=== PATIENT | male | born 1980 | race African-American/Black ===

== ENCOUNTER 2019-08-03 22:54 | Emergency (ER) | payer SELFPAY ==
[~2019-08-03] VITALS: Ht 180.3 cm; Wt 74.8 kg
--- NOTE | 2019-08-03 23:04 | NUR ---
KAYLEN FROM HOME TO ER BED 9. INTOXICATED, SMELLS OF ALCOHOL. BROUGHT IN ON GURNEY. BROUGHT IN FOR HEMATESIS. PT REPORTS THAT HE HAS BEEN DRINKING AND HAD TOO MUCH, REPORT 1.5 BOTTLE OF WHISKEY. PT HAD X3 EPISODE OF VOMMITING AND ON THE 3RD VOMMITING HE NOTED DARK RED BLOOD. PA IS AT BEDSIDE FOR EVAL.
[2019-08-03] MEDS ORDERED: ONDANSETRON HCL/PF 4 MG/2 ML VIAL ONE (23:12)
[2019-08-03] MEDS ORDERED: PANTOPRAZOLE 40 MG VIAL ONE (23:12)
[2019-08-03] MEDS ORDERED: ONDANSETRON HCL/PF 4 MG/2 ML VIAL IVP ONE (23:30)
[2019-08-03] MEDS ORDERED: IV NS 0.9% 1,000 ML BAG IV ONE (23:30)
[2019-08-03] MEDS ORDERED: PANTOPRAZOLE 40 MG VIAL IV ONE (23:30)
[2019-08-03 23:43] LABS: BASOPHILS # (AUTO) 0.1 /CMM (0.0-0.2); BASOPHILS % (AUTO) 0.7 % (0.0-2.0); EOSINOPHILS % (AUTO) 0.4 % (0.0-6.0); HEMATOCRIT 44 % (39-51); HEMOGLOBIN 14.4 g/dL (13.5-17.5); LYMPHOCYTES # (AUTO) 1.2 /CMM (0.8-4.8); LYMPHOCYTES % (AUTO) 5.8 % (20.0-44.0); MEAN CORPUSCULAR HGB CONC 33 g/dl (31.0-36.0); MEAN CORPUSCULAR VOLUME 88 fL (80-96); MONOCYTES # (AUTO) 0.8 /CMM (0.1-1.30); MONOCYTES % (AUTO) 3.6 % (2.0-12.0); NEUTROPHILS % (AUTO) 89.5 % (43.0-81.0); PLATELET COUNT (AUTO) 159 /CMM (150-450); RED BLOOD CELL COUNT(AUTO) 4.98 MIL/uL (4.5-6.0); WHITE BLOOD COUNT (AUTO) 21.2 K/uL (4.3-11.0)
[2019-08-03 23:56] LABS: ALBUMIN 4.5 g/dL (3.4-5.0); BILIRUBIN,TOTAL 0.3 mg/dL (0.2-1.0); CALCIUM, SERUM 8.9 mg/dL (8.5-10.1); CREATININE 1.4 mg/dL (0.6-1.3); POTASSIUM 4.2 mmol/L (3.5-5.1); TOTAL PROTEIN, SERUM 8.3 g/dL (6.4-8.2)
[2019-08-04 01:05] VITALS: BP 122/67
--- NOTE | 2019-08-04 01:05 | NUR ---
Patient discharged to home in stable condition. Written and verbal after care instructions given. Patient verbalizes understanding of instruction.IV removed. Catheter intact and site benign. Pressure and 4x4 applied to site. No bleeding noted. Pt ambulatory with a steady gait
== END 2019-08-04 01:05 | disposition home or self-care (01) ==
LOC: ER 22:55
DX: K29.20 Alcoholic gastritis without bleeding (principal); F10.10 Alcohol abuse, uncomplicated; K92.0 Hematemesis; K21.9 Gastro-esophageal reflux disease without esophagitis; Y90.6 Blood alcohol level of 120-199 mg/100 ml
CPT/HCPCS: 36415; 80048; 80076; 80307; 83690; 85025; 96361; 96374; 96375; 99283; C9113; J2405; J7030; G0480